=== PATIENT | female | born 1995 | race Caucasian/White ===

== ENCOUNTER 2017-02-05 20:18 | Emergency (ER) | payer BC ==
[~2017-02-05] VITALS: Ht 162.6 cm; Wt 56.7 kg
[2017-02-05] MEDS ORDERED: LORazepam Inj 2mg/ml 1ml ONE (20:19)
[2017-02-05 20:20] VITALS: BP 110/66
[2017-02-05] MEDS ORDERED: KEPPRA500 M4 ORAL (20:25)
[2017-02-05] MEDS ORDERED: KLONOPIN0.5 MG ORAL (20:25)
[2017-02-05] MEDS ORDERED: levETIRAcetam 500 MG in D5W 110 ML IV ONE (20:30)
[2017-02-05] MEDS ORDERED: LORazepam Inj 2mg/ml 1ml IV ONE (20:30)
[2017-02-05] MEDS ORDERED: levETIRAcetam 500mg vial IV ONE (20:42)
[2017-02-05 21:04] LABS: BASOPHILS % (AUTO) 2.2 % (0.0-2.0); EOSINOPHILS % (AUTO) 0.5 % (0.0-3.0); LYMPHOCYTES % (AUTO) 47.3 % (20.0-45.0); MEAN CORPUSCULAR HEMOGLOBIN 33.2 PG (27.0-31.0); MEAN CORPUSCULAR HGB CONC 34.1 G/DL (32.0-36.0); MEAN CORPUSCULAR VOLUME 97 FL (80-99); MEAN PLATELET VOLUME 8.3 FL (6.5-10.1); MONOCYTES % (AUTO) 4.8 % (1.0-10.0); NEUTROPHILS % (AUTO) 45.2 % (45.0-75.0); PLATELET COUNT 283 K/UL (150-450); RED BLOOD COUNT 4.67 M/UL (4.20-5.40); RED CELL DISTRIBUTION WIDTH 10.9 % (11.6-14.8); WHITE BLOOD COUNT 6.8 K/UL (4.8-10.8)
[2017-02-05 21:21] LABS: ALANINE AMINOTRANSFERASE 28 U/L (3-33); ALBUMIN/GLOBULIN RATIO 1.5 (1.0-2.7); ANION GAP 28 (5-15); ASPARTATE AMINO TRANSFERASE 35 U/L (5-40); CALCIUM 10.1 mg/dL (8.6-10.2); CARBON DIOXIDE 17 mEQ/L (20-30); CHLORIDE 96 mEQ/L (98-107); CREATININE 1.1 mg/dL (0.5-0.9); GLOMERULAR FILTRATION RATE > 60 mL/min (>60); HEMOLYSIS 17; POTASSIUM 3.6 mEQ/L (3.4-4.9); SODIUM 141 mEQ/L (135-145); TOTAL PROTEIN 8.5 g/dL (6.6-8.7)
[2017-02-05 21:30] VITALS: BP 112/8
[2017-02-05 22:09] LABS: APPEARANCE,URINE CLEAR; KETONES,URINE 1+ (NEGATIVE); LEUKOCYTE ESTERASE ,URINE 1+ (NEGATIVE); NITRITE,URINE NEGATIVE (NEGATIVE); PH,URINE 8 (4.5-8.0); PROTEIN,URINE 2+ (NEGATIVE); UROBILINOGEN,URINE NORMAL MG/DL (0.0-1.0)
[2017-02-05 22:26] LABS: BACTERIA,URINE FEW /HPF; RBC,URINE 0-2 /HPF (0 - 2); SQUAMOUS EPITHELIAL CELL,UR FEW /LPF (NONE/OCC)
--- NOTE | 2017-02-05 22:35 | Emergency Room Report ---
History of Present Illness General Chief Complaint: Seizure Source: Patient, Family Member, EMS Present Illness HPI This patient presents with seizures. 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 She underwent a craniotomy at that time. She is on Keppra and does take her Keppra religiously. She has a neurologist that she sees regularly. Today she had a tonic-clonic seizure at home and then had another seizure in route and had another seizure on arrival. There has been no trauma or recent illness. The patient has been out in the hot weather playing tennis. She also has had increased stress with a new job coming up. There has been no fever or chills. No recent illness. Chest pain or shortness of breath. There are no other complaints. The patient received Versed 10 mg intranasally by EMS prior to arrival. Patient also took Klonopin at home this evening. Allergies: Coded Allergies: No Known Allergies (Unverified , 02/05/17) Patient History Past Medical History: see triage record, seizures, other - encephalitis Past Surgical History: other - craniectomy Social History: Denies: smoking, alcohol use, drug use Reviewed Nursing Documentation: PMH: Agreed, PSxH: Agreed Nursing Documentation-PMH Past Medical History: No History, Except For Hx Seizures: Yes - encephalitis Review of Systems All Other Systems: negative except mentioned in HPI Physical Exam Vital Signs Date Time Temp Pulse Resp B/P (MAP) Pulse Ox O2 Delivery O2 Flow Rate FiO2 02/05/17 20:13 120 18 128/81 98 Room Air 02/05/17 20:20 97.8 2.0 Sp02 EP Interpretation: reviewed, normal General Appearance: non-toxic, other - Actively seizing with tonic-clonic myoclonis. Head: normocephalic, atraumatic Eyes: bilateral eye normal inspection, bilateral eye PERRL ENT: normal pharynx, no angioedema Neck: full range of motion, supple/symm/no masses Respiratory: chest non-tender, lungs clear, normal breath sounds, speaking full sentences Cardiovascular #1: no edema, tachycardia Gastrointestinal: normal bowel sounds, non tender, soft, non-distended, no guarding, no rebound Rectal: deferred Musculoskeletal: normal inspection, normal range of motion Neurologic: other - seizing Skin: normal color, no rash, warm/dry, well hydrated Medical Decision Making Diagnostic Impression: Primary Impression: Seizure disorder ER Course This patient presented with multiple breakthrough tonic-clonic seizures. The patient has a history of seizure disorder. She has a history of encephalitis and craniectomy. She did undergo CT of the head which showed no acute findings. There were findings of encephalomalacia of the right temporal lobe that is unchanged from previously. The patient recovered and was given IV Keppra and Ativan. The case was discussed with the patient's neurologist and her Keppra will be increased. The patient will also followup with her neurologist tomorrow morning. The patient does not have persistent altered mental status, fever or new focal neurologic deficit. Laboratory workup was noncontributory. I doubt meningitis so a lumbar puncture was not performed. The patient was counseled that, though unlikely, the possibility of an emergent cause of seizure may still be present and that the patient should return immediately if symptoms persist or worsen. I believe the patient is stable for discharge to followup with the primary care provider for further workup. Laboratory Tests Test 02/05/17 20:45 02/05/17 21:40 White Blood Count 6.8 K/UL (4.8-10.8) Red Blood Count 4.67 M/UL (4.20-5.40) Hemoglobin 15.5 G/DL (12.0-16.0) Hematocrit 45.5 % (37.0-47.0) Mean Corpuscular Volume 97 FL (80-99) Mean Corpuscular Hemoglobin 33.2 PG (27.0-31.0) H Mean Corpuscular Hemoglobin Concent 34.1 G/DL (32.0-36.0) Red Cell Distribution Width 10.9 % (11.6-14.8) L Platelet Count 283 K/UL (150-450) Mean Platelet Volume 8.3 FL (6.5-10.1) Neutrophils (%) (Auto) 45.2 % (45.0-75.0) Lymphocytes (%) (Auto) 47.3 % (20.0-45.0) H Monocytes (%) (Auto) 4.8 % (1.0-10.0) Eosinophils (%) (Auto) 0.5 % (0.0-3.0) Basophils (%) (Auto) 2.2 % (0.0-2.0) H Sodium Level 141 mEQ/L (135-145) Potassium Level 3.6 mEQ/L (3.4-4.9) Chloride Level 96 mEQ/L (98-107) L Carbon Dioxide Level 17 mEQ/L (20-30) L Anion Gap 28 (5-15) H Blood Urea Nitrogen 14 mg/dL (7-23) Creatinine 1.1 mg/dL (0.5-0.9) H Estimate Glomerular Filtration Rate > 60 mL/min (>60) Glucose Level 156 mg/dL (74-106) H Calcium Level 10.1 mg/dL (8.6-10.2) Total Bilirubin < 0.2 mg/dL (0.0-1.2) Aspartate Amino Transferase (AST) 35 U/L (5-40) Alanine Aminotransferase (ALT) 28 U/L (3-33) Alkaline Phosphatase 42 U/L (35-104) Total Protein 8.5 g/dL (6.6-8.7) Albumin 5.2 g/dL (3.5-5.2) Globulin 3.3 g/dL Albumin/Globulin Ratio 1.5 (1.0-2.7) Human Chorionic Gonadotropin, Qual Negative Urine Color Pale yellow Urine Appearance Clear Urine pH 8 (4.5-8.0) Urine Specific [place] 1.015 (1.005-1.035) Urine Protein 2+ (NEGATIVE) H Urine Glucose (UA) Negative (NEGATIVE) Urine Ketones 1+ (NEGATIVE) H Urine Occult Blood Negative (NEGATIVE) Urine Nitrite Negative (NEGATIVE) Urine Bilirubin Negative (NEGATIVE) Urine Urobilinogen Normal MG/DL (0.0-1.0) Urine Leukocyte Esterase 1+ (NEGATIVE) H Urine RBC 0-2 /HPF (0 - 2) Urine WBC 2-4 /HPF (0 - 2) Urine Squamous Epithelial Cells Few /LPF (NONE/OCC) Urine Bacteria Few /HPF (NONE) Urine Opiates Screen Negative (NEGATIVE) Urine Barbiturates Screen Negative (NEGATIVE) Phencyclidine (PCP) Screen Negative (NEGATIVE) Urine Amphetamines Screen Negative (NEGATIVE) Urine Benzodiazepines Screen Positive (NEGATIVE) H Urine Cocaine Screen Negative (NEGATIVE) Urine Marijuana (THC) Screen Negative (NEGATIVE) EKG Diagnostic Results Rate: tachycardiac Rhythm: other ST Segments: no acute changes Other Impression S.tachycardia Rhythm Strip Diag. Results EP Interpretation: yes Rate: 100's Rhythm: no PVC's, no ectopy, other Other Impression S.tachycardia CT/MRI/US Diagnostic Results CT/MRI/US Diagnostic Results : Imaging Test Ordered: CT head Impression Post right craniotomy and there is a large region of encephalomalacia, predominantly involving the right temporal lobe an insulin. No acute intracranial hemorrhage or mass effect. See official report. Last Vital Signs Date Time Temp Pulse Resp B/P (MAP) Pulse Ox O2 Delivery O2 Flow Rate FiO2 02/05/17 20:20 123 16 Nasal Cannula 2.0 02/05/17 20:20 97.8 110/66 100 Status: improved Disposition: HOME, SELF-CARE Condition: Improved Referrals: NOT CHOSEN IPA/MD,REFERRING (PCP) Patient Instructions: Seizure, Adult Additional Instructions: Please increase your Keppra to 750 mg twice a day. Please followup with your neurologist tomorrow. BLOSSOM FLAHERTY D.O. Feb 05, 2017 22:35
[2017-02-05 23:15] VITALS: BP 120/72
--- NOTE | 2017-02-06 09:01 | Diagnostic Imaging Report ---
Indications: Due to Technique: Spiral acquisitions obtained through the brain. Angled axial and coronal 5 x 5 mm slices were reconstructed. Total dose length product 1424 mGycm. CTDI vol(s) 70 mGy. Dose reduction achieved using automated exposure control Comparison: None Findings: There is a large right frontotemporoparietal craniotomy/craniectomy defect. There is extensive underlying encephalomalacia, involving most of the right temporal lobe, and portions of the right frontal and parietal lobes as well as extending into the basal ganglia. There is resultant ex vacuo dilatation of the is temporal horn and a lesser extent the frontal horn and body the right lateral ventricle. No acute intracranial hemorrhage or edema. No mass effect or midline shift. Otherwise normal ochoa-white differentiation. Otherwise normal size ventricles and extra-axial CSF spaces. Impression: Evidence of right-sided postsurgical changes, as described. Extensive right convexity and basal ganglia encephalomalacia, as described, presumably related to the above. Correlate with surgical history Negative for acute intracranial bleed or mass effect. This agrees with the preliminary interpretation provided overnight by [facility]erad[facility] service. The CT scanner at [facility] is accredited by the [employer] and the scans are performed using protocols designed to limit radiation exposure to as low as reasonably achievable to attain images of sufficient resolution adequate for diagnostic evaluation.
--- NOTE | 2017-02-06 15:53 | Cardiology Report ---
APPROVED REPORT EKG Measurement Heart [id number] Sinus tachycardia N[address]pecific ST abnormality Abnormal ECG
== END 2017-02-05 23:15 | disposition home or self-care (01) ==
LOC: EDBD 20:18 → EMR 21:32
DX: G40.909 Epilepsy, unspecified, not intractable, without status epilepticus (principal)
CPT/HCPCS: 36415; 70450; 80053; 80299; 80300; 81003; 84703; 85025; 93005; 96361; 96365; 96375; 99284; J1953